=== PATIENT | female | born 1960 | race Two or more races ===

== ENCOUNTER 2025-01-12 08:40 | Emergency (ER) | payer OTHER ==
[~2025-01-12] VITALS: Ht 162.6 cm; Wt 73.5 kg
[2025-01-12] MEDS ORDERED: CONZIP100 MG (08:53)
[2025-01-12] MEDS ORDERED: XANAX XR2 MG (08:53)
[2025-01-12] MEDS ORDERED: VENLAFAXINE HC150 M1 (08:53)
[2025-01-12 08:54] VITALS: BP 106/71; O2SAT 95
[2025-01-12] MEDS ORDERED: 0.9 % SODIUM CHLORIDE 1,000 ML IV SCH (09:15)
[2025-01-12 09:37] LABS: BASO % 0.4 % (0.1-1.2); EOS # 0.07 (0.04-0.54); HEMATOCRIT 42.5 % (34.1-44.9); HEMOGLOBIN 14.7 g/dL (11.2-15.7); LYMPH # 2.01 (1.18-3.74); MEAN CORPUSCULAR HEMOGLOBIN 29.3 pg (25.6-32.2); MONO # 0.55 (0.24-0.82); MONO % 8.2 % (4.7-12.5); NEUT # 4.04 (1.56-6.13); NEUT % 60.3 % (34.0-71.1); PLATELET COUNT 314 K/uL (163-369); RED BLOOD COUNT 5.02 M/uL (3.93-5.22); RED CELL DISTRIBUTION WIDTH 12.6 % (11.6-14.4)
[2025-01-12 09:57] LABS: ALBUMIN 4.2 gm/dL (3.4-5.0); BILIRUBIN TOTAL 0.57 mg/dL (0.3-1.2); CREATININE SERUM 0.84 mg/dL (0.55-1.02); GFR 68.7; GLOBULINA 3.6 G/DL (2.4-3.5); POTASSIUM 4.35 mEq/L (3.5-5.1); TOTAL PROTEIN 7.8 gm/dL (6.4-8.2)
[2025-01-12 10:13] LABS: PH,URINE 5.5 (5.0-8.0); URINE APPEARANCE Clear; URINE BILIRRUBIN Negative (NEGATIVE); URINE BLOOD Negative; URINE COLOR Yellow; URINE GLUCOSE Negative (NEGATIVE); URINE KETONE Trace (NEGATIVE); URINE LEUKOCYTE Small; URINE NITRATE Negative; URINE PROTEIN Negative (NEGATIVE); URINE UROBILINOGEN 0.2 E.U./dl
[2025-01-12 10:17] LABS: URINE BACTERIA 163.9 uL (0.0-1933); URINE EPITHELIAL CELLS 18.6 uL (0.0-38.8); URINE RBC 8.6 uL (0.0-20.8); URINE WBC 23.8 uL (0.0-23.2)
[2025-01-12 10:18] LABS: URINE CAST 0.14 uL (0.0-1.40)
[2025-01-12] MEDS ORDERED: CEPHALEXIN500 MG PO (12:38)
== END 2025-01-12 12:50 | disposition home or self-care (01) ==
LOC: ER 08:49
PROVIDERS: General Practice
DX: R10.2 Pelvic and perineal pain (principal); N39.0 Urinary tract infection, site not specified; R32 Unspecified urinary incontinence
CPT/HCPCS: 74177; 96365; 99283; J3490; Q9965